=== PATIENT | female | born 1945 | race Caucasian/White ===

== ENCOUNTER → 2019-05-05 14:39 | Outpatient (CLI) | payer OTHER, SELFPAY ==
--- NOTE | 2019-05-05 | DI.ECHO.S_ITS ---
[place] [facility] +---------+ : : [address] : [address] : : : : [id number] : : : : Phone: [phone]+ Echocardiogram Report + + :Name: ZACHARIAH IVEY Study Date: 05/05/2019 Height: 63 in : :[facility] Weight: 147 lb : : Gender: Female BSA: 1.7 m2 : :: 1945 Age: 74 yrs BP: 117/57 mmHg: :Reason For Study: PEDAL EDEMA : : Performed By: Siva Reddy : :Referring: MARCOS CARRASCO : + + Interpretation Summary The left ventricle is normal in size, wall thickness, and systolic function without any focal wall motion abnormalities with the ejection fraction visually estimated to be 60-65%. Diastolic parameters suggest a relaxation abnormality of the left ventricle, consistent with probable normal filling pressures. There has been no significant change since the previous study. The right ventricle is normal in size and function and unchanged compared to the previous study. The right ventricular systolic pressure is estimated to be at least 23 mmHg based on an estimated right atrial pressure of 3 mm Hg, and is unchanged compared to the previous study. Both atria are normal in size. There is mild mitral regurgitation that is unchanged compared to the previous study. There is no other significant valvular heart disease. Procedure: A two-dimensional transthoracic echocardiogram with color flow and Doppler was performed. The study quality was technically good. Comparison is made with the echocardiogram of 03/02/15. The patient was in normal sinus rhythm during the exam. Left Ventricle: The left ventricle is normal in size, wall thickness, and systolic function without any focal wall motion abnormalities. The ejection fraction is estimated to be 60-65%. Diastolic parameters suggest a relaxation abnormality of the left ventricle, consistent with probable normal filling pressures. There has been no significant change since the previous study. Right Ventricle: The right ventricle is normal in size and function. This is unchanged compared to the previous study. Atria: Both atria are normal in size. The interatrial septum is intact with no evidence for an atrial septal defect. Mitral Valve: The mitral valve is normal in structure and function. There is mild mitral regurgitation. This is unchanged compared to the previous study. Aortic Valve: The aortic valve is trileaflet. The aortic valve is slightly calcified. The aortic valve opens well. No aortic regurgitation is present. Tricuspid Valve: The tricuspid valve is normal in structure and function. There is trace tricuspid regurgitation. The right ventricular systolic pressure is estimated to be at least 23 mmHg based on an estimated right atrial pressure of 3 mm Hg. This is unchanged compared to the previous study. Pulmonic Valve: The pulmonic valve is normal in structure and function. There is trace pulmonic regurgitation. There is no other significant valvular heart disease. Great Vessels: The aortic root is normal size. The dimensions of the ascending aorta are normal. The pulmonary artery is normal size. The IVC is of normal diameter and collapses greater than 50% with a sniff. This suggests a low right atrial pressure of 3 mm Hg. Pericardium/ Pleura There is no pericardial effusion. There is no pleural effusion. MMode/2D Measurements & Calculations LVIDd: 4.3 cm LVOT diam: 1.9 cm LVIDs: 2.7 cm Ao root diam: 2.7 cm FS: 37.6 % Aortic Jxn: 2.1 cm EPSS: 0.44 cm asc Aorta Diam: 2.5 cm IVSd: 0.80 cm Ao Arch Diam (Prox Trans): 2.4 cm LVPWd: 0.59 cm LV saenz. diameter/BSA (cm/m^2): 2.5 LV sys. diameter/BSA (cm/m^2): 1.6 LA dimension: 3.3 cm RA long axis: 4.1 cm LA A2 area: 18.9 cm2 RA area: 11.2 cm2 LA A4 area: 13.1 cm2 RA vol: 25.9 ml LA length (vol): 4.2 cm RA : 15.3 ml/m2 LA vol: 49.5 ml IVC diam: 0.95 cm LA vol index: 29.2 ml/m2 Doppler Measurements & Calculations Ao V2 max: 156.2 cm/sec LVOT Max Angel: 123.4 cm/sec Ao V2 mean: 111.7 cm/sec LV V1 max P.1 mmHg Ao max P.8 mmHg LV V1 VTI: 23.4 cm Ao mean P.4 mmHg ANAND(I,D): 1.9 cm2 Ao V2 VTI: 35.3 cm ANAND(V,D): 2.2 cm2 sev ratio: 0.66 ANAND indexed to BSA (cm^2/m^2): 1.1 MV E max angel: 77.2 cm/sec TR max angel: 224.6 cm/sec MV A max angel: 109.8 cm/sec TR max P.2 mmHg MV E/A: 0.70 PA V2 max: 84.0 cm/sec Med Peak E' Angel: 4.7 cm/sec PA V2 mean: 58.0 cm/sec E/E' med: 16.3 PA mean P.5 mmHg Lat Peak E' Angel: 5.7 cm/sec PA pr(Accel): 36.6 mmHg E/E' lat: 13.6 PA Accel Time: 0.10 sec E/e' average: 14.9 MV dec time: 0.25 sec [facility] 65.5 ml Reading Physician:PM
== END ==
PROVIDERS: PCP Family Medicine; Visit Provider Specialist
DX: I34.0 Nonrheumatic mitral (valve) insufficiency (principal); R60.0 Localized edema
CPT/HCPCS: 93306

== ENCOUNTER → 2025-05-25 12:20 | Outpatient (CLI) | payer MEDICARE, SELFPAY ==
--- NOTE | 2025-05-25 12:21 | DI.ECHO.S_ITS ---
[place] [facility]---------+ [facility] : : [address] : : [place] : : [id number] : : Phone: [phone] Echocardiogram Report + + :Name: ZACHARIAH IVEY Study Date: 05/25/2025 Height: 62 in : :[facility] ReadingLocation: Weight: 150 lb : : Gender: Female BSA: 1.7 m2 : :: 1945 Age: 80 yrs BP: 126/69 mmHg: :Reason For Study: CORONARY ARTERY DISEASE : :Ordering Physician: DANILO, : :MARCOS Performed By: Anh Duarte : :Referring: MARCOS CARRASCO : + + Interpretation Summary The left ventricle remains normal in systolic function with an EF estimated at 60 to 65% without focal abnormality. Left ventricular volumes remain normal with a possible diastolic relaxation abnormality but normal filling pressures, and likely unchanged from the previous study. The right ventricle remains normal and unchanged. Right ventricular systolic pressure is 21 mmHg with a CVP of 3 mmHg, unchanged from the previous exam. Both atria remain normal in size. There is mild tricuspid regurgitation that is unchanged and trivial mitral regurgitation that is less prominent compared to the previous study, although mild subvalvular calcification is more notable on today's exam. Procedure: A two-dimensional transthoracic echocardiogram with color flow and Doppler was performed. The study quality was technically adequate. Comparison is made with the echocardiogram of 05/05/2019. The patient was in sinus rhythm with heart rates between 60-87 bpm during the exam. Left Ventricle: The left ventricle appears normal in size, wall thickness, and systolic function without any focal wall motion abnormalities. The estimated left ventricular end diastolic volume is 52 ml. The ejection fraction is estimated to be 60-65%. This is unchanged compared to the previous study. Grade I diastolic dysfunction with normal left atrial pressure. This is likely unchanged compared to the previous study. Right Ventricle: The right ventricle is normal in size and function. This is unchanged compared to the previous study. Atria: Both atria are normal in size. This is unchanged compared to the previous study. There is no Doppler evidence for an interatrial shunt. Mitral Valve: The mitral valve chordae are thickened and/or calcified. This is slightly more compared to the previous study. The mitral valve leaflets appear to open well. There is trace mitral regurgitation. This is less prominent compared to the previous study. Aortic Valve: The aortic valve is trileaflet. The aortic valve is slightly calcified. The aortic valve opens well. There is no aortic valve stenosis. No aortic regurgitation is present. Tricuspid Valve: The tricuspid valve leaflets are thin and pliable. There is mild tricuspid regurgitation. The right ventricular systolic pressure is estimated to be at least 21 mmHg based on an estimated right atrial pressure of 3 mm Hg. This is unchanged compared to the previous study. Pulmonic Valve: The pulmonic valve leaflets are thin and pliable; valve motion is normal. There is no pulmonic valvular regurgitation. Great Vessels: The aortic root is normal size. The dimensions of the ascending aorta are normal. The IVC is of normal diameter and collapses greater than 50% with a sniff. This suggests a low right atrial pressure of 3 mm Hg. Pericardium/ Pleura There is no pericardial effusion. There is no pleural effusion. MMode/2D Measurements & Calculations LVIDd: 3.9 cm LVOT diam: 1.8 cm LVIDs: 2.5 cm Ao root diam: 2.6 cm FS: 35.6 % asc Aorta Diam: 2.6 cm IVSd: 0.74 cm Ao Arch Diam (Prox Trans): 2.3 cm LVPWd: 0.67 cm LV saenz. diameter/BSA (cm/m^2): 2.3 LV sys. diameter/BSA (cm/m^2): 1.5 LA A2 area: 18.0 cm2 RA long axis: 4.1 cm LA A4 area: 13.3 cm2 RA area: 10.9 cm2 LA length (vol): 4.3 cm RA vol: 24.3 ml LA vol: 47.0 ml RA : 14.4 ml/m2 LA vol index: 27.8 ml/m2 IVC diam: 1.2 cm RVD1 (basal): 3.8 cm TAPSE: 2.4 cm Doppler Measurements & Calculations Ao V2 max: 159.0 cm/sec LVOT Max Angel: 99.3 cm/sec Ao V2 mean: 113.6 cm/sec LV V1 max P.9 mmHg Ao max P.1 mmHg LV V1 VTI: 22.5 cm Ao mean P.6 mmHg ANAND(I,D): 1.6 cm2 Ao V2 VTI: 37.8 cm ANAND(V,D): 1.7 cm2 sev ratio: 0.59 ANAND indexed to BSA (cm^2/m^2): 0.94 MV E max angel: 87.5 cm/sec TR max angel: 213.3 cm/sec MV A max angel: 115.9 cm/sec TR max P.2 mmHg MV E/A: 0.75 PA V2 max: 73.4 cm/sec Med Peak E' Angel: 4.6 cm/sec PA V2 mean: 54.7 cm/sec E/E' med: 18.9 PA mean P.3 mmHg Lat Peak E' Angel: 6.0 cm/sec PA pr(Accel): 21.6 mmHg E/E' lat: 14.6 E/e' average: 16.7 MV dec time: 0.23 sec SV(LVOT): 60.2 ml Reading Physician:[id number] AM
== END ==
LOC: ECHO 12:20
PROVIDERS: PCP Family Medicine; Referring Provider Specialist; Visit Provider Specialist
DX: I07.1 Rheumatic tricuspid insufficiency (principal); I25.10 Atherosclerotic heart disease of native coronary artery without angina pectoris
CPT/HCPCS: 93306